=== PATIENT | male | born 1960 | race Caucasian/White ===

== ENCOUNTER 2016-08-06 13:01 | Observation (INO) ==
[2016-08-06] MEDS ORDERED: *HR* Labetalol 20 MG/4 ML SYRINGE IVP ONE ×2 (13:39→17:08)
[2016-08-06 13:49] LABS: Bilirubin,Urine Negative (Negative); Blood,Urine Moderate (Negative); Clarity,Urine Clear (Clear); Color,Urine Yellow (Yellow); Glucose,Urine (UA) >=1000 mg/dL (Normal); Ketones,Urine Negative (Negative); Leukocyte Esterase,Urine Negative (Negative); Nitrite,Urine Negative (Negative); Protein,Urine >=300 mg/dL (Neg-Trace); Specific Gravity,Urine 1.015 (1.010-1.025); Urobilinogen,Urine Normal (Normal)
[2016-08-06 14:01] LABS: Basophils % 0.3 %; Eosinophils # 0.2 K/mcL (0.0-0.6); Eosinophils % 2.3 %; Hemoglobin 13.9 g/dL (12.9-16.9); Immature Granulocytes % 0.3 % (0-4); Lymphocytes # 1.3 K/mcL (0.6-4.6); Lymphocytes % 18.8 %; Mean Corpuscular HGB Conc 36.6 g/dL (31.6-35.5); Mean Corpuscular Hemoglobin 30.9 pg (28.0-33.3); Mean Corpuscular Volume 84.4 fL (83.0-100.0); Mean Platelet Volume 11.1 fL (9.4-12.4); Monocytes # 0.4 K/mcL (0.0-1.3); Neutrophils # 5.1 K/mcL (1.6-8.9); Platelet Count 133 K/mcL (140-400); Red Cell Distribution Width 13.2 % (11.5-14.5); Segmented Neutrophils % 73.3 %
[2016-08-06 14:11] LABS: RBC,Urine 0-3 per hpf (0-3); Squamous Epithelial Cell,Urine Few per lpf (None-Few); WBC,Urine 0-3 per hpf (0-3)
[2016-08-06 14:16] LABS: Albumin 2.8 g/dL (3.5-5.0); Albumin/Globulin Ratio 0.7 (1.1-2.2); Bilirubin,Total 0.4 mg/dL (0.2-1.2); Calcium 9.3 mg/dL (8.6-10.8); Globulin 3.8 g/dL (2.4-3.5); Potassium 3.6 mEq/L (3.5-4.5); Total Protein 6.6 g/dL (6.0-8.3)
[2016-08-06] MEDS ORDERED: Insulin Human Regular 10 UNIT in 0.9 % Sodium Chloride 10 ML IV ONE (14:33)
[2016-08-06] MEDS ORDERED: 0.9 % Sodium Chloride 1,000 ML IVC SCH ×2 (14:45→18:30)
[2016-08-06] MEDS ORDERED: amLODIPine 5 MG TABLET PO ONE ×2 (17:08→17:30)
--- NOTE | 2016-08-06 17:11 | Emergency Department Note ---
Disposition Clinical Impression: Hypertensive urgency, Renal insufficiency Uncontrolled diabetes mellitus Qualifiers: Diabetes mellitus type: type 2 Diabetes mellitus complication status: with unspecified complications Diabetes mellitus jail insulin use: without jail use Qualified Code(s): E11.8 - Type 2 diabetes mellitus with unspecified complications Disposition: Admitted As Inpatient Condition: Good Referrals: NO,PCP [Primary Care Provider] - Forms: Work/School Release, ED Satisfaction Letter Time of Disposition: 17:13 General Adult HPI - General Chief complaint: ED General Medical Stated complaint: Intermittent jerking and numvbness in left leg Time Seen by Provider: 08/06/16 13:14 Source: patient Mode of arrival: ambulatory Limitations: no limitations Nursing Notes Reviewed: Yes Vital Signs Reviewed: Yes - History of Present Illness HPI Narrative: 56-year-old white male who presents complaining of some muscle twitching in his right leg and some tingling in his right leg for several days. He admits to some generalized fatigue and weakness. He admits a history of hypertension that been untreated for over a year. He admits a history of diabetes it has been untreated for over a year. He denies headache or blurred vision. He denies chest pain. Onset (ago): day(s) (3) Location: lower extremity Pain Scale: 0 Associated symptoms: Reports: denies other symptoms Treatments Prior to Arrival: none - Related Data Home Medications Medication Instructions Recorded Confirmed No Known Home Drugs 08/06/16 08/06/16 Allergies Allergy/AdvReac Type Severity Reaction Status Date / Time No Known Allergies Allergy Verified 08/06/16 13:02 All systems ED: reviewed and negative except as stated. Constitutional: Denies: fever, chills Eyes: Denies: vision change ENT ED: Denies: ear pain, throat pain Cardiovascular: Denies: chest pain Respiratory: Denies: cough, dyspnea Gastrointestinal: Denies: abdominal pain, nausea, vomiting, diarrhea Genitourinary: Denies: urgency, dysuria, frequency Musculoskeletal: Reports: other (Muscle twitching right leg). Denies: back pain , neck pain Neurological: Reports: paresthesias (Right leg). Denies: headache, weakness Endocrine: Reports: fatigue Past Medical History - Past Medical History Medical history: Reports: diabetes, hypertension Psychiatric history: Reports: no psych history - Social History Smoking Status: Former smoker Smokeless Tobacco Status: Yes Alcohol use: Reports: none Drug use: Reports: none Physical Exam - General Limitations: no limitations General appearance: alert, in no apparent distress - Head Head exam: atraumatic, normocephalic - Eye Eye exam: Present: PERRL, EOMI. Absent: scleral icterus, conjunctival injection - ENT ENT exam: normal oropharynx, mucous membranes moist, TM's normal bilaterally - Neck Neck exam: Present: normal inspection, full ROM, trachea midline. Absent: tenderness, meningismus, lymphadenopathy, thyromegaly - Chest Chest inspection: Present: normal inspection, symmetric chest wall rise - Respiratory Respiratory exam: Present: normal lung sounds bilaterally. Absent: respiratory distress, wheezes - Cardiovascular Cardiovascular exam: Present: regular rate, normal rhythm, normal heart sounds - Abdominal Exam Abdominal exam: Present: soft, Non-Tender, normal bowel sounds. Absent: organomegaly, mass - Extremities Exam Extremities exam: Present: normal inspection, full ROM, normal capillary refill. Absent: tenderness, pedal edema - Neurological Exam Neurological exam: Present: alert, oriented X3, CN II-XII intact, normal gait, reflexes normal. Absent: motor sensory deficit - Psychiatric Psychiatric exam: Present: normal affect, normal mood - Skin Skin exam: Present: warm, dry, intact, normal color. Absent: cyanosis, diaphoresis Course - Reevaluation(s) Reevaluation #1: Dr. Caraballo contacted. He has accepted the patient for observation admission. Time: 17:13 Vital Signs Temperature 99.5 F 08/06/16 13:02 Pulse Rate 98 08/06/16 13:02 Respiratory Rate 18 08/06/16 13:02 Blood Pressure 211/124 08/06/16 13:02 O2 Sat by Pulse Oximetry 96 08/06/16 13:02 Temperature 99.5 F 08/06/16 13:04 Pulse Rate 81 08/06/16 16:45 Respiratory Rate 15 08/06/16 16:45 Blood Pressure 168/72 08/06/16 16:45 O2 Sat by Pulse Oximetry 95 08/06/16 16:45 Oxygen Delivery Oxygen Delivery Room Air Medical Decision Making - MDM Narrative Medical decision making narrative: IV labetalol was administered. There was some improvement in his blood pressure. A second dose will be given after I talk with Dr. Caraballo. We will also start him on by mouth Norvasc. He was given IV insulin and IV fluids. His blood sugar is improving. He will be placed in observation bed for further evaluation. The etiology of the muscle twitching in his leg is not clear. There is certainly no clinical evidence of an acute neurologic event such as stroke. - Lab Data Lab results reviewed: Yes I reviewed the patient's lab results. Result diagrams: 08/06/16 13:50 08/06/16 13:50 Lab Results 08/06/16 08/06/16 08/06/16 Range/Units 13:40 13:41 13:45 WBC (4.3-11.1) K/mcL RBC (4.19-5.50) M/mcL Hgb (12.9-16.9) g/dL Hct (37.5-50.1) % MCV (83.0-100.0) fL MCH (28.0-33.3) pg MCHC (31.6-35.5) g/dL RDW (11.5-14.5) % Plt Count (140-400) K/mcL MPV (9.4-12.4) fL Immature Gran % (0-4) % Seg Neutrophils % % Lymphocytes % % Monocytes % % Eosinophils % % Basophils % % Neutrophils # (1.6-8.9) K/mcL Lymphocytes # (0.6-4.6) K/mcL Monocytes # (0.0-1.3) K/mcL Eosinophils # (0.0-0.6) K/mcL Basophils # (0.0-0.2) K/mcL Sodium (136-145) mEq/L Potassium (3.5-4.5) mEq/L Chloride (98-109) mEq/L Carbon Dioxide (19-29) mEq/L BUN (8-26) mg/dL Creatinine (0.72-1.25) mg/dL Est GFR ( Amer) (> 60) Est GFR (Non-Af Amer) (> 60) BUN/Creatinine Ratio (6-26) Glucose (70-99) mg/dL POC Glucose > 600 H* > 600 H* (58-89) Calculated Osmolality (280-300) Calcium (8.6-10.8) mg/dL Total Bilirubin (0.2-1.2) mg/dL AST (5-34) Units/L ALT (0-55) Units/L Alkaline Phosphatase (38-126) Units/L Serum Total Protein (6.0-8.3) g/dL Albumin (3.5-5.0) g/dL Globulin (2.4-3.5) g/dL Albumin/Globulin Ratio (1.1-2.2) Urine Color Yellow (Yellow) Urine Clarity Clear (Clear) Urine pH 7.0 (5.0-8.0) pH Units Ur Specific [place] 1.015 (1.010-1.025) Urine Protein >=300 H (Neg-Trace) mg/dL Urine Glucose (UA) >=1000 H (Normal) mg/dL Urine Ketones Negative (Negative) mg/dL Urine Blood Moderate H (Negative) Urine Nitrite Negative (Negative) Urine Bilirubin Negative (Negative) Urine Urobilinogen Normal (Normal) mg/dL Ur Leukocyte Esterase Negative (Negative) Urine Microscopic RBC 0-3 (0-3) per hpf Urine Microscopic WBC 0-3 (0-3) per hpf Ur Squamous Epith Cells Few (None-Few) per lpf Ur Culture Indicated? NO (NO) 08/06/16 08/06/16 08/06/16 Range/Units 13:50 13:50 16:04 WBC 7.0 (4.3-11.1) K/mcL RBC 4.50 (4.19-5.50) M/mcL Hgb 13.9 (12.9-16.9) g/dL Hct 38.0 (37.5-50.1) % MCV 84.4 (83.0-100.0) fL MCH 30.9 (28.0-33.3) pg MCHC 36.6 H (31.6-35.5) g/dL RDW 13.2 (11.5-14.5) % Plt Count 133 L (140-400) K/mcL MPV 11.1 (9.4-12.4) fL Immature Gran % 0.3 (0-4) % Seg Neutrophils % 73.3 % Lymphocytes % 18.8 % Monocytes % 5.0 % Eosinophils % 2.3 % Basophils % 0.3 % Neutrophils # 5.1 (1.6-8.9) K/mcL Lymphocytes # 1.3 (0.6-4.6) K/mcL Monocytes # 0.4 (0.0-1.3) K/mcL Eosinophils # 0.2 (0.0-0.6) K/mcL Basophils # 0.0 (0.0-0.2) K/mcL Sodium 128 L (136-145) mEq/L Potassium 3.6 (3.5-4.5) mEq/L Chloride 90 L (98-109) mEq/L Carbon Dioxide 25 (19-29) mEq/L BUN 25 (8-26) mg/dL Creatinine 2.92 H (0.72-1.25) mg/dL Est GFR ( Amer) 27 L (> 60) Est GFR (Non-Af Amer) 22 L (> 60) BUN/Creatinine Ratio 9 (6-26) Glucose 724 H* (70-99) mg/dL POC Glucose 463 H* (58-89) Calculated Osmolality 305 H (280-300) Calcium 9.3 (8.6-10.8) mg/dL Total Bilirubin 0.4 (0.2-1.2) mg/dL AST 17 (5-34) Units/L ALT 26 (0-55) Units/L Alkaline Phosphatase 116 (38-126) Units/L Serum Total Protein 6.6 (6.0-8.3) g/dL Albumin 2.8 L (3.5-5.0) g/dL Globulin 3.8 H (2.4-3.5) g/dL Albumin/Globulin Ratio 0.7 L (1.1-2.2) Urine Color (Yellow) Urine Clarity (Clear) Urine pH (5.0-8.0) pH Units Ur Specific [place] (1.010-1.025) Urine Protein (Neg-Trace) mg/dL Urine Glucose (UA) (Normal) mg/dL Urine Ketones (Negative) mg/dL Urine Blood (Negative) Urine Nitrite (Negative) Urine Bilirubin (Negative) Urine Urobilinogen (Normal) mg/dL Ur Leukocyte Esterase (Negative) Urine Microscopic RBC (0-3) per hpf Urine Microscopic WBC (0-3) per hpf Ur Squamous Epith Cells (None-Few) per lpf Ur Culture Indicated? (NO) 08/06/16 Range/Units 16:05 WBC (4.3-11.1) K/mcL RBC (4.19-5.50) M/mcL Hgb (12.9-16.9) g/dL Hct (37.5-50.1) % MCV (83.0-100.0) fL MCH (28.0-33.3) pg MCHC (31.6-35.5) g/dL RDW (11.5-14.5) % Plt Count (140-400) K/mcL MPV (9.4-12.4) fL Immature Gran % (0-4) % Seg Neutrophils % % Lymphocytes % % Monocytes % % Eosinophils % % Basophils % % Neutrophils # (1.6-8.9) K/mcL Lymphocytes # (0.6-4.6) K/mcL Monocytes # (0.0-1.3) K/mcL Eosinophils # (0.0-0.6) K/mcL Basophils # (0.0-0.2) K/mcL Sodium (136-145) mEq/L Potassium (3.5-4.5) mEq/L Chloride (98-109) mEq/L Carbon Dioxide (19-29) mEq/L BUN (8-26) mg/dL Creatinine (0.72-1.25) mg/dL Est GFR ( Amer) (> 60) Est GFR (Non-Af Amer) (> 60) BUN/Creatinine Ratio (6-26) Glucose (70-99) mg/dL POC Glucose 521 H* (58-89) Calculated Osmolality (280-300) Calcium (8.6-10.8) mg/dL Total Bilirubin (0.2-1.2) mg/dL AST (5-34) Units/L ALT (0-55) Units/L Alkaline Phosphatase (38-126) Units/L Serum Total Protein (6.0-8.3) g/dL Albumin (3.5-5.0) g/dL Globulin (2.4-3.5) g/dL Albumin/Globulin Ratio (1.1-2.2) Urine Color (Yellow) Urine Clarity (Clear) Urine pH (5.0-8.0) pH Units Ur Specific [place] (1.010-1.025) Urine Protein (Neg-Trace) mg/dL Urine Glucose (UA) (Normal) mg/dL Urine Ketones (Negative) mg/dL Urine Blood (Negative) Urine Nitrite (Negative) Urine Bilirubin (Negative) Urine Urobilinogen (Normal) mg/dL Ur Leukocyte Esterase (Negative) Urine Microscopic RBC (0-3) per hpf Urine Microscopic WBC (0-3) per hpf Ur Squamous Epith Cells (None-Few) per lpf Ur Culture Indicated? (NO) - Radiology Data Radiology results reviewed: Yes I reviewed the patient's radiology results. ITS Impressions Chest X-Ray 08/06/16 13:39 IMPRESSION: No acute cardiopulmonary disease. D/ / Julio Miguel MD / Julio Miguel MD Interpreting Provider: Julio Miguel MD Head CT 08/06/16 13:39 IMPRESSION: No acute intracranial abnormality. D/ / Kunal Vargas MD / Kunal Vargas MD Interpreting Provider: Kunal Vargas MD - EKG Data EKG #1 EKG attestation: Yes I reviewed and interpreted this EKG. EKG results narrative: Normal sinus rhythm, rate of 91, nonspecific ST-T changes, interventricular conduction delay. Rhythm Shows sinus rhythm with a rate of 91, AL interval 160 ms, QRS 117 ms with no other ectopy as interpreted by me.
[2016-08-06] MEDS ORDERED: Acetaminophen 325 MG TABLET PO PRN (18:30)
[2016-08-06] MEDS ORDERED: *HR* Dextrose 50 % in Water (Syg) 50 ML SYRINGE IVP PRN ×2 (18:30→19:02)
[2016-08-06] MEDS ORDERED: D5% in Water 1,000 ML IVC PRN ×2 (18:30→19:02)
[2016-08-06] MEDS ORDERED: Insulin LISPRO 300 UNITS/3 ML VIAL SQ SCH (18:30)
[2016-08-06] MEDS ORDERED: Naloxone 0.4 MG/ML INJ IVP PRN (18:30)
[2016-08-06] MEDS ORDERED: Dextrose Gel 15 GM PO PRN ×4 (18:30→19:02)
[2016-08-06] MEDS: 0.9 % Sodium Chloride 1,000 ML IVC SCH (21:30)
[2016-08-06] MEDS: Insulin LISPRO 300 UNITS/3 ML VIAL SQ SCH (21:31)
[2016-08-07] MEDS: *HR* Enoxaparin 40 MG/0.4 ML SYRINGE SQ SCH (06:18)
[2016-08-07] MEDS: 0.9 % Sodium Chloride 1,000 ML IVC SCH ×3 (06:19→22:35)
[2016-08-07] MEDS: amLODIPine 5 MG TABLET PO SCH (07:15)
[2016-08-07] MEDS: Insulin LISPRO 300 UNITS/3 ML VIAL SQ SCH ×4 (07:35→21:56)
[2016-08-07] MEDS ORDERED: amLODIPine 5 MG TABLET PO SCH ×2 (09:00)
--- NOTE | 2016-08-07 11:35 | Internal Med History&Physical ---
Date of Encounter: 08/07/16 Time of Encounter: 11:05 Assessment and Plan (1) Hypertensive urgency Current visit: Yes Status: Acute He was given labetalol and Norvasc in the emergency room. The Norvasc is being continued. I will add clonidine. (2) CKD (chronic kidney disease) stage 4, GFR 15-29 ml/min Current visit: Yes Status: Acute I told him he would need to follow up with the drupal web developer shortly after discharge. His kidney function has declined since last hospitalization. (3) Uncontrolled diabetes mellitus Current visit: Yes Status: Acute He will be started on Levemir. Accu-Cheks with SSI will be given. Renal function is impaired so metformin will not be given. Qualifiers: Diabetes mellitus type: type 2 Diabetes mellitus complication status: with unspecified complications Diabetes mellitus local intermodal truck driver insulin use: without assisted use Qualified Code(s): E11.8 - Type 2 diabetes mellitus with unspecified complications; E11.65 - Type 2 diabetes mellitus with hyperglycemia Internal Medicine - H&P: HPI Chief complaint: Hypertension, hyperglycemia, leg twitching Admitted From: Home Plans for Post Hospital Care: Home History of present illness: Mr. Worthington is a 56 year old male who came to emergency room stating his right lower leg had "twitching" and involuntary movements onset the previous evening. There was no significant pain or injury associated. He was evaluated in emergency room and found to have markedly elevated blood pressure and blood sugar. He was admitted to [facility] floor for ongoing care needs. He was hospitalized last [facility] November 2013. His cardiovascular history is significant for hypertension but he states he has not seen a primary care provider or taken any medications in over a year. He denies [place] heart failure angina DVT or pulmonary embolus. He reports a heart catheter in 2011 was negative. His endocrine history is pertinent for being diagnosed with DM 2 approximately 2010. He has not used medications within the past year for this and does not check his blood sugars regularly. He does not follow diabetic diet. He has hyperlipidemia but no known thyroid disease. Past Med Surg Social Fam HX - Past Medical History Medical history: diabetes, hypertension Psychiatric history: no psych history - Social History Smoking Status: Former smoker Smokeless Tobacco Status: Yes Alcohol use: none Drug use: none Internal Medicine - H&P: Meds No Known Home Drugs 08/06/16 [History] Allergies No Known Allergies Allergy (Verified 08/06/16 13:02) All Systems PM: A 10-system review of systems was performed and is negative for pertinent findings except as documented above in the HPI. Review of systems: Gen.: His weight has decreased from 152.407 kg November 2013 hospitalization to 137.892 kg at present. Weight loss was unintentional. Cardiovascular: As per history of present illness Respiratory: He smoked from age [age] up to 2 packs per day. He has a diagnosis of asthma but denies COPD. He does not use home oxygen. He has been diagnosed with HARRISON but does not use CPAP that was prescribed. GI: Denies disorders of his liver gallbladder or exocrine pancreas : He has history of chronic kidney disease stage III but has not seen a drupal web developer in over 2 years. He has a history of kidney stones. Neurologic: He denies large distribution strokes or seizures. Endocrine: As per history of present illness Hematology/oncology: Denies blood disorders cancers or anemia Psychiatric: He denies anxiety depression other mental health issues [place] skeletal: Denies arthritis gout or other bone joint or muscle disorders. - Constitutional Vitals: Temp Pulse Resp BP Pulse Ox 97.7 F 86 18 170/102 97 08/07/16 10:07 08/07/16 10:07 08/07/16 10:07 08/07/16 10:07 08/07/16 10:07 Exam: Gen.: He is a well-developed well-nourished male who appears in no acute distress at present time HEENT: Head is atraumatic and normocephalic. Eyes: EOMI. There is no scleral icterus. Mouth: Mucosa is moist. Neck: Supple and nontender. There is no thyromegaly or adenopathy noted. Heart: Regular without murmurs gallops or ectopics. Lungs: No wheezes or crackles are heard. Abdomen: Soft and nontender. No masses or guarding noted. Extremities: There is no cyanosis edema or clubbing noted. Dorsalis pedis and posttibial pulses are 2 over 2 bilaterally. He has hair present on his toes. There is no twitching or fasciculations seen of the musculature of the lower legs. Neurologic: Mental status: He is talkative and a good historian. Cranial nerves : Smile is symmetric. Forehead wrinkles bilaterally. Tongue protrudes midline. EOMI. Motor: There is no pronator drift. Cerebellar: Finger to nose intact bilaterally. Skin: Warm and dry Internal Med - H&P Results - Labs CBC & Chem 7: 08/06/16 13:50 08/06/16 13:50
[2016-08-07] MEDS: cloNIDine HCl 0.1 MG TABLET PO SCH ×3 (12:49→20:04)
[2016-08-07] MEDS: Insulin DETEMIR 100 UNIT/ML X5UNITS SQ SCH ×2 (12:50→21:56)
--- NOTE | 2016-08-07 14:57 | Electrocardiograph Report ---
[address] [address] Test Date: 2016-08-06 Pat Name: Eder Worthington Department: [id number] Room: [facility] Gender: M Blocker Hand: [id number] : 1960 Requested By: Julio Edwards Order Number: [id number] Reading MD: Daniel Matias MD Measurements Intervals [place] Rate: 91 P: -38 WY: 160 QRS: 55 QRSD: 117 T: -3 QT: 372 QTc: 421 Interpretive Statements SINUS RHYTHM Poor R wave progression Electronically Signed On 08-07-2016 14:55:21 EDT by Daniel Matias MD
[2016-08-08] MEDS: *HR* Enoxaparin 40 MG/0.4 ML SYRINGE SQ SCH (05:27)
[2016-08-08 05:50] LABS: Basophils % 0.5 %; Eosinophils # 0.2 K/mcL (0.0-0.6); Eosinophils % 2.9 %; Hematocrit 35.4 % (37.5-50.1); Hemoglobin 12.6 g/dL (12.9-16.9); Immature Granulocytes % 0.3 % (0-4); Lymphocytes # 1.7 K/mcL (0.6-4.6); Lymphocytes % 26.6 %; Mean Corpuscular HGB Conc 35.6 g/dL (31.6-35.5); Mean Corpuscular Hemoglobin 31.1 pg (28.0-33.3); Mean Corpuscular Volume 87.4 fL (83.0-100.0); Mean Platelet Volume 11.5 fL (9.4-12.4); Monocytes # 0.3 K/mcL (0.0-1.3); Monocytes % 4.5 %; Neutrophils # 4.1 K/mcL (1.6-8.9); Platelet Count 119 K/mcL (140-400); Red Blood Count 4.05 M/mcL (4.19-5.50); Red Cell Distribution Width 13.7 % (11.5-14.5); Segmented Neutrophils % 65.2 %
[2016-08-08 06:08] LABS: Calcium 8.3 mg/dL (8.6-10.8); Magnesium 1.7 mg/dL (1.6-2.6); Potassium 3.3 mEq/L (3.5-4.5)
[2016-08-08 07:20] VITALS: BP 142/85
[2016-08-08] MEDS: Insulin LISPRO 300 UNITS/3 ML VIAL SQ SCH (07:47)
[2016-08-08] MEDS: cloNIDine HCl 0.1 MG TABLET PO SCH (09:34)
[2016-08-08] MEDS: 0.9 % Sodium Chloride 1,000 ML IVC SCH ×2 (09:34)
[2016-08-08] MEDS: amLODIPine 5 MG TABLET PO SCH (09:34)
--- NOTE | 2016-08-08 10:15 | Discharge Summary ---
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 Qualified Code(s): E11.8 - Type 2 diabetes mellitus with unspecified complications; E11.65 - Type 2 diabetes mellitus with hyperglycemia - Discharge Medications Prescriptions: Amlodipine Besylate 10 mg PO DAILY #30 tablet cloNIDine HCl [Clonidine HCl] 0.2 mg PO Q8H #90 tab Insulin Glargine [Lantus] 40 unit SQ HS 30 Days Home Medications: Amlodipine Besylate 10 mg PO DAILY #30 tablet 08/08/16 [Rx] Insulin Glargine [Lantus] 40 unit SQ HS 30 Days 08/08/16 [Rx] cloNIDine HCl [Clonidine HCl] 0.2 mg PO Q8H #90 tab 08/08/16 [Rx] Allergies/Adverse Reactions: Allergies No Known Allergies Allergy (Verified 08/06/16 13:02) Date of admission: 08/06/16 17:30 Primary care physician: Adebayo Colunga M.D. - Patient Status Disposition: Home, Self-Care Condition: Good Functional capacity at discharge: independent ambulation Overall status at discharge: patient is progressing back to baseline - Discharge Instructions Follow Up With: Adebayo Colunga MD [Partnered Physician] - 1 week - Diet and Activity Activity: resume usual activities as tolerated Diet: diabetic diet Hospital course: Mr. Worthington is a 56 year old male who came to emergency room stating his right lower leg had "twitching" and involuntary movements onset the previous evening. There was no significant pain or injury associated. He was evaluated in emergency room and found to have markedly elevated blood pressure and blood sugar. He was admitted to [facility] for ongoing care needs. Initial orders written by the emergency room physician. I saw him on August 07 and performed a history and physical. He had no further twitching or involuntary movements of his right leg after admission. On I saw him on August 08 he felt back to baseline and wished to be discharged home. He was started on ongoing Norvasc and clonidine for blood pressure control. His blood pressure returned to satisfactory level on this regimen. He will continue this at discharge. Blood sugars improved significantly but were still above desirable range. He will be started on Lantus 40 units daily at bedtime and monitor blood sugars at home. He will take results to his PCP visit with Dr. Colunga next week. His creatinine improved to 2.39 on the day of discharge assessment a GFR of 28. Potassium level was 3.3 on August 08 and he was given a supplemental potassium pill prior to discharge. On August 08 he felt stable for discharge home. He wished to follow with Dr. Colunga and will be seen within one week. - Time Spent with Patient Total time spent providing and/or coordinating discharge services: - Constitutional Vitals: Temp Pulse Resp BP Pulse Ox 98.1 F 70 16 142/85 95 08/08/16 07:16 08/08/16 07:16 08/08/16 07:16 08/08/16 07:16 08/08/16 09:44
[2016-08-08] MEDS: Insulin DETEMIR 100 UNIT/ML X5UNITS SQ SCH (10:17)
== END 2016-08-08 11:01 | disposition home or self-care (01) ==
LOC: INPPIK 13:01 → EMEROOPIK 13:01 → INPPIK 18:10
PROVIDERS: ADMIT Internal Medicine; ATTEND Internal Medicine